=== PATIENT | female | born 1960 | race Two or more races ===

== ENCOUNTER 2018-02-14 19:28 | Emergency (ER) | payer OTHER ==
[~2018-02-14] VITALS: Ht 167.6 cm; Wt 77.1 kg
[~2018-02-14 19:28] MED LIST: BENA5TAB5 PO; GABA300C PO; INSU100V27 SQ; INSU100V7 SQ; METF-442 PO; SITA1TAB6
--- NOTE | 2018-02-14 19:38 | NUR ---
JODI FROM A CLINIC SP BLOOD DRAW. PATIENT IS AWAKE AND ALERT,. APPEARS NOT IN DISTRESS. RESPIRATION EVEN AND UNLABORED. SKIN IS WARM TO TOUCH AND NON DIAPGHORETIC. PT IS AFEBRILE. VSS
[2018-02-14] MEDS ORDERED: IV NS 0.9% 1,000 ML BAG IV ONE (20:00)
[2018-02-14 20:50] LABS: BASOPHILS # (AUTO) 0.1 /CMM (0.0-0.2); BASOPHILS % (AUTO) 0.6 % (0.0-2.0); EOSINOPHILS % (AUTO) 1.5 % (0.0-6.0); HEMATOCRIT 42 % (33-45); HEMOGLOBIN 14.2 g/dL (11.5-14.8); LYMPHOCYTES # (AUTO) 1.9 /CMM (0.8-4.8); LYMPHOCYTES % (AUTO) 14.2 % (20.0-44.0); MEAN CORPUSCULAR HGB CONC 34 g/dl (31.0-36.0); MEAN CORPUSCULAR VOLUME 84 fL (82-100); MONOCYTES # (AUTO) 0.6 /CMM (0.1-1.30); MONOCYTES % (AUTO) 4.5 % (2.0-12.0); NEUTROPHILS # (AUTO) 10.3 /CMM (1.8-8.9); NEUTROPHILS % (AUTO) 79.2 % (43.0-81.0); PLATELET COUNT (AUTO) 284 /CMM (150-450); RDW COEFFICIENT OF VARIATION 14.1 (11.5-15.0); RED BLOOD CELL COUNT(AUTO) 4.97 MIL/uL (4.0-5.2); WHITE BLOOD COUNT (AUTO) 13.1 K/uL (4.3-11.0)
[2018-02-14 21:01] LABS: CALCIUM, SERUM 8.1 mg/dL (8.5-10.1); CREATININE 1.4 mg/dL (0.6-1.3); POTASSIUM 4.3 mmol/L (3.5-5.1)
[2018-02-14 21:19] VITALS: BP 112/80
--- NOTE | 2018-02-14 21:20 | NUR ---
PATIENT DISCHARGED TO HOME IN STABLE CONDITION. REFUSED TO SIGN DISCHARGE PAPER. MAST MAKER MADE AWARE
== END 2018-02-14 21:23 | disposition home or self-care (01) ==
LOC: ER 19:29
DX: E86.0 Dehydration (principal); I10 Essential (primary) hypertension; R55 Syncope and collapse; E11.42 Type 2 diabetes mellitus with diabetic polyneuropathy; E78.5 Hyperlipidemia, unspecified; Z79.4 Long term (current) use of insulin
CPT/HCPCS: 36415; 80048; 82962; 85025; 99284; A4606; Z7610